=== PATIENT | male | born 1995 | race African-American/Black ===

== ENCOUNTER 2017-05-08 11:34 | Emergency (ER) | payer OTHER ==
[~2017-05-08] VITALS: Ht 182.9 cm; Wt 72.6 kg
[~2017-05-08 11:34] MED LIST: AMOXICILLIN500 M1 PO; IBUPROFEN600 MG PO; RONDEC-DM SYRU120 ML PO
[2017-05-08 12:18] LABS: URINE SOURCE CLEAN CATCH
[2017-05-08 12:24] LABS: URINE APPEARANCE CLEAR; URINE BILIRUBIN NEG (NEG); URINE BLOOD NEG (NEG); URINE COLOR YELLOW; URINE GLUCOSE NEG (NEG); URINE KETONE NEG (NEG); URINE LEUKOCYTE ESTERASE NEG (NEG); URINE NITRATE NEG (NEG); URINE PROTEIN NEG (NEG); URINE SPECIFIC GRAVITY 1.026 (1.003-1.035)
[2017-05-08 12:45] LABS: CULTURE INDICATED? NO; URINE TRICHOMONAS NEGATIVE
[2017-05-09 23:44] LABS: CHLAMYDIA TRACH Not Detected (Not Detected); N GONOR Not Detected (Not Detected)
== END 2017-05-08 13:41 | disposition home or self-care (01) ==
LOC: CED 11:34 → CFTX 11:34
PROVIDERS: Nurse Practitioner
DX: Z20.2 Contact with and (suspected) exposure to infections with a predominantly sexual mode of transmission (principal); F17.210 Nicotine dependence, cigarettes, uncomplicated; Z98.890 Other specified postprocedural states
CPT/HCPCS: 81003; 87491; 87591; 99283